=== PATIENT | female | born 1955 | race African-American/Black ===

== ENCOUNTER 2018-06-08 18:44 | Inpatient (IN) ==
[2018-06-08 19:29] LABS: Basophils % 0.1 % (0.0-0.8); Eosinophils # 0.1 10*3/uL (0.0-0.87); Eosinophils % 0.5 % (0.00-10.9); Hematocrit 23.7 VOL% (35.7-47.0); Hemoglobin 7.3 GM/DL (12.0-16.0); Immature Granulocytes % 0.7 %; Immature Granulocytes Absolute 0.13 #; Lymphocytes # 3.3 10*3/uL (1.4-4.0); Lymphocytes % 18.7 % (21.3-54.2); Mean Corpuscular HGB Conc 30.8 GM/DL (32-36); Mean Corpuscular Hemoglobin 23 PG (27-34); Mean Corpuscular Volume 75.7 FL (87-102); Mean Platelet Volume 12.7 FL (9.6-12.0); Monocytes % 5.8 % (1.7-12.7); Neutrophils % 74.2 % (38.7-73.9); Platelet Count 254 T/CUMM (130-400); Red Blood Count 3.13 MC/CUMM (3.8-5.5); Red Cell Distribution Width 16.3 % (9.3-17.3); White Blood Count 17.5 T/CUMM (4-12)
[2018-06-08 19:50] LABS: Alanine Aminotransferase 15 U/L (13-56); Albumin 2.8 G/DL (3.4-5.0); Alkaline Phosphatase 109 U/L (45-117); Aspartate Amino Transferase 15 U/L (0-37); Bilirubin,Total < 0.39 MG/DL (0.2-1.0); Blood Urea Nitrogen 18 MG/DL (7-18); Calcium 8.6 MG/DL (8.5-10.1); Glucose 123 MG/DL (74-106); Lactic Acid 3.1 MMOL/L (0.4-2.0); Osmolality,Calculated 275.8 MOS/KG (273-304); Potassium 3.6 MMOL/L (3.5-5.1); Sodium 137 MMOL/L (136-145); Total Protein 7.6 G/DL (6.4-8.3)
[2018-06-08] MEDS ORDERED: cefTRIAXone 1,000 MG in SODIUM CHLORIDE 0.9% 100 ML IV STA (20:27)
[2018-06-08] MEDS ORDERED: SODIUM CHLORIDE 0.9% 2,000 ML IV STA (20:27)
[2018-06-08] MEDS ORDERED: AZITHROMYCIN INJ 500 MG in SODIUM CHLORIDE 0.9% 250 ML IV STA (20:39)
[2018-06-08] MEDS ORDERED: ONDANSETRON 4 MG/2 ML VIAL IV PRN (20:52)
[2018-06-08] MEDS ORDERED: guaiFENesin/DM ER 600-30 MG TABLET PO PRN (20:52)
[2018-06-08] MEDS ORDERED: ACETAMINOPHEN 325 MG TABLET PO PRN (20:52)
[2018-06-08] MEDS ORDERED: ALBUTEROL 1.25 MG/3 ML NEB RESP TX PRN (21:16)
[2018-06-08] MEDS ORDERED: PANTOPRAZOLE 40 MG VIAL IV ONE (21:30)
[2018-06-08] MEDS: ENOXAPARIN 40 MG/0.4 ML SYRINGE SUBCUT SCH (23:44)
[2018-06-08] MEDS: BUDESONIDE/FORMOTEROL 80-4.5 INHALER 6.9 GM INH SCH (23:45)
[2018-06-09 05:42] LABS: Basophils % 0.2 % (0.0-0.8); Eosinophils # 0.2 10*3/uL (0.0-0.87); Eosinophils % 1.6 % (0.00-10.9); Hemoglobin 6.5 GM/DL (12.0-16.0); Immature Granulocytes % 0.4 %; Immature Granulocytes Absolute 0.05 #; Lymphocytes # 3.8 10*3/uL (1.4-4.0); Lymphocytes % 29.6 % (21.3-54.2); Mean Corpuscular Hemoglobin 23 PG (27-34); Mean Corpuscular Volume 74.2 FL (87-102); Monocytes # 0.7 10*3/uL (0.11-0.8); Monocytes % 5.7 % (1.7-12.7); Neutrophils # 7.9 10*3/uL (1.4-7.4); Neutrophils % 62.5 % (38.7-73.9); Platelet Count 222 T/CUMM (130-400); Red Blood Count 2.83 MC/CUMM (3.8-5.5); Red Cell Distribution Width 16.2 % (9.3-17.3); White Blood Count 12.7 T/CUMM (4-12)
[2018-06-09] MEDS ORDERED: PANTOPRAZOLE 40 MG TABLET PO SCH (09:00)
[2018-06-09] MEDS: LISINOPRIL 20 MG TABLET PO SCH (09:56)
[2018-06-09] MEDS: predniSONE 20 MG TABLET PO SCH (09:56)
[2018-06-09] MEDS: LETROZOLE 2.5 MG TABLET PO SCH (09:56)
[2018-06-09] MEDS: BUDESONIDE/FORMOTEROL 80-4.5 INHALER 6.9 GM INH SCH ×2 (09:57→21:24)
[2018-06-09] MEDS: cefTRIAXone 1,000 MG in SYRINGE 1 EACH IV SCH ×2 (09:57→21:23)
[2018-06-09] MEDS: PANTOPRAZOLE 40 MG VIAL IV SCH (10:01)
[2018-06-09] MEDS ORDERED: SODIUM CHLORIDE 0.9% 1,000 ML IV PRN (11:42)
[2018-06-09] MEDS ORDERED: ALBUTEROL 2.5 MG/3 ML NEB RESP TX PRN (13:14)
[2018-06-09] MEDS ORDERED: AZITHROMYCIN INJ 500 MG in SODIUM CHLORIDE 0.9% 250 ML IV SCH (21:00)
[2018-06-09] MEDS: ENOXAPARIN 40 MG/0.4 ML SYRINGE SUBCUT SCH (21:22)
[2018-06-10 07:03] LABS: Basophils % 0.2 % (0.0-0.8); Eosinophils # 0.1 10*3/uL (0.0-0.87); Eosinophils % 0.8 % (0.00-10.9); Hematocrit 27.5 VOL% (35.7-47.0); Hemoglobin 8.8 GM/DL (12.0-16.0); Immature Granulocytes % 0.4 %; Immature Granulocytes Absolute 0.05 #; Lymphocytes # 3.7 10*3/uL (1.4-4.0); Lymphocytes % 26.9 % (21.3-54.2); Mean Corpuscular Hemoglobin 25 PG (27-34); Mean Corpuscular Volume 76.6 FL (87-102); Mean Platelet Volume 13.5 FL (9.6-12.0); Monocytes # 0.8 10*3/uL (0.11-0.8); Monocytes % 6.1 % (1.7-12.7); Neutrophils % 65.6 % (38.7-73.9); Platelet Count 180 T/CUMM (130-400); Red Blood Count 3.59 MC/CUMM (3.8-5.5); Red Cell Distribution Width 16.4 % (9.3-17.3); White Blood Count 13.7 T/CUMM (4-12)
[2018-06-10 08:02] LABS: Calcium 8.4 MG/DL (8.5-10.1); Osmolality,Calculated 281.3 MOS/KG (273-304); Potassium 3.5 MMOL/L (3.5-5.1)
[2018-06-10] MEDS: LETROZOLE 2.5 MG TABLET PO SCH (08:59)
[2018-06-10] MEDS: LISINOPRIL 20 MG TABLET PO SCH (08:59)
[2018-06-10] MEDS: BUDESONIDE/FORMOTEROL 80-4.5 INHALER 6.9 GM INH SCH ×2 (08:59→20:59)
[2018-06-10] MEDS: predniSONE 20 MG TABLET PO SCH (08:59)
[2018-06-10] MEDS: PANTOPRAZOLE 40 MG VIAL IV SCH (09:00)
[2018-06-10] MEDS: cefTRIAXone 1,000 MG in SYRINGE 1 EACH IV SCH ×2 (09:07→21:00)
[2018-06-10] MEDS: AZITHROMYCIN 250 MG TABLET PO SCH (20:59)
[2018-06-10] MEDS: ENOXAPARIN 40 MG/0.4 ML SYRINGE SUBCUT SCH (21:00)
[2018-06-11 07:11] LABS: Basophils % 0.3 % (0.0-0.8); Eosinophils # 0.2 10*3/uL (0.0-0.87); Eosinophils % 1.1 % (0.00-10.9); Hematocrit 28.3 VOL% (35.7-47.0); Hemoglobin 8.7 GM/DL (12.0-16.0); Immature Granulocytes % 0.4 %; Immature Granulocytes Absolute 0.05 #; Lymphocytes # 4.2 10*3/uL (1.4-4.0); Lymphocytes % 31.6 % (21.3-54.2); Mean Corpuscular HGB Conc 30.7 GM/DL (32-36); Mean Corpuscular Hemoglobin 24 PG (27-34); Mean Corpuscular Volume 77.5 FL (87-102); Mean Platelet Volume 13.7 FL (9.6-12.0); Monocytes # 0.9 10*3/uL (0.11-0.8); Monocytes % 7.1 % (1.7-12.7); Neutrophils # 7.9 10*3/uL (1.4-7.4); Neutrophils % 59.5 % (38.7-73.9); Platelet Count 218 T/CUMM (130-400); Red Blood Count 3.65 MC/CUMM (3.8-5.5); Red Cell Distribution Width 16.9 % (9.3-17.3); White Blood Count 13.3 T/CUMM (4-12)
[2018-06-11 07:39] LABS: Calcium 8.5 MG/DL (8.5-10.1); Osmolality,Calculated 282.1 MOS/KG (273-304); Potassium 3.6 MMOL/L (3.5-5.1)
[2018-06-11] MEDS: BUDESONIDE/FORMOTEROL 80-4.5 INHALER 6.9 GM INH SCH ×2 (09:21→21:35)
[2018-06-11] MEDS: LISINOPRIL 20 MG TABLET PO SCH (09:22)
[2018-06-11] MEDS: LETROZOLE 2.5 MG TABLET PO SCH (09:22)
[2018-06-11] MEDS: predniSONE 20 MG TABLET PO SCH (09:23)
[2018-06-11] MEDS: PANTOPRAZOLE 40 MG TABLET PO SCH (09:23)
[2018-06-11] MEDS: cefTRIAXone 1,000 MG in SYRINGE 1 EACH IV SCH ×2 (09:23→22:19)
[2018-06-11] MEDS: ALBUTEROL/IPRATROPIUM 3 ML NEB RESP TX SCH ×2 (13:05→19:46)
[2018-06-11] MEDS: PREGABALIN 75 MG CAPSULE PO SCH ×2 (16:02→21:34)
[2018-06-11] MEDS ORDERED: MONTELUKAST 10 MG TABLET PO SCH (21:00)
[2018-06-11] MEDS: AZITHROMYCIN 250 MG TABLET PO SCH (21:33)
[2018-06-11] MEDS: ENOXAPARIN 40 MG/0.4 ML SYRINGE SUBCUT SCH (21:36)
[2018-06-12] MEDS: ALBUTEROL/IPRATROPIUM 3 ML NEB RESP TX SCH ×2 (00:26→07:12)
[2018-06-12] MEDS: LETROZOLE 2.5 MG TABLET PO SCH (08:31)
[2018-06-12] MEDS: LISINOPRIL 20 MG TABLET PO SCH (08:31)
[2018-06-12] MEDS: PANTOPRAZOLE 40 MG TABLET PO SCH (08:31)
[2018-06-12] MEDS: predniSONE 20 MG TABLET PO SCH (08:31)
[2018-06-12] MEDS: cefTRIAXone 1,000 MG in SYRINGE 1 EACH IV SCH (08:31)
[2018-06-12] MEDS: PREGABALIN 75 MG CAPSULE PO SCH ×2 (08:31→15:07)
[2018-06-12] MEDS: BUDESONIDE/FORMOTEROL 80-4.5 INHALER 6.9 GM INH SCH (10:18)
[2018-06-12 16:18] VITALS: BP 143/67
== END 2018-06-12 16:30 | disposition home or self-care (01) | DRG 194 ==
LOC: N.ED 18:44 → N.EDINP 20:53 → N.2E 22:53
PROVIDERS: ADMIT Internal Medicine; ATTEND Internal Medicine